=== PATIENT | male | born 1975 | race Caucasian/White ===

== ENCOUNTER 2019-11-10 16:01 | Emergency (ER) | payer SELFPAY ==
[2019-11-10] MEDS ORDERED: Diphtheria,Pertussis(Acell),Tetanus Vaccine 0.5 ML SDV IM ONE (16:31)
[2019-11-10] MEDS ORDERED: Lidocaine 1% 30 ML SDV INJECT ONE (16:47)
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
[2019-11-10] MEDS ORDERED: Amoxicillin/Clavulanate K 875-125 MG Tab PO ONE (17:29)
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
== END 2019-11-10 17:38 | disposition home or self-care (01) ==
LOC: DL.ED 16:01
DX: S68.620A Partial traumatic transphalangeal amputation of right index finger, initial encounter (principal); Z23 Encounter for immunization; Z79.01 Long term (current) use of anticoagulants; W26.9XXA Contact with unspecified sharp object(s), initial encounter
CPT/HCPCS: 12001; 73140; 90471; 90715; 99283; A9270; J2001